=== PATIENT | female | born 1985 | race African-American/Black ===

== ENCOUNTER 2020-02-26 15:40 | Emergency (ER) | payer OTHER, SELFPAY ==
[2020-02-26 15:55] VITALS: BP 156/97; PULSE 110; RESP 20; TEMP 37.2; O2SAT 100
--- NOTE | 2020-02-26 16:57 | ED.URI ---
HPI - URI/Sore Throat General Chief Complaint: Upper Respiratory Infection Stated Complaint: sore throat Time Seen by Provider: 02/26/20 16:57 Source: patient Mode of arrival: ambulatory Limitations: no limitations History of Present Illness HPI Narrative: Cathryn Ortega is a 35 yo female with PMH of HTN who started with sore throat this morning, no sob, fatigue, no fever. Denies N/V/D. Related Data Home Medications Medication Instructions Recorded Confirmed lisinopril-hydrochlorothiazide 25 tablet PO DAILY 02/26/20 02/26/20 Allergies Allergy/AdvReac Type Severity Reaction Status Date / Time No Known Allergies Allergy Mild Verified 01/10/11 12:12 Review of Systems Review of Systems: Narrative: CONSTITUTIONAL: Denies fever, chills, sweats. EYES: Denies visual changes, redness, discharge. ENT: Denies rhinorrhea, congestion, has sore throat, no otalgia. CARDIOVASCULAR: Denies chest pain, palpitations, edema. RESPIRATORY: Denies dyspnea, wheezing, cough GASTROINTESTINAL: Denies abdominal pain, nausea, vomiting, diarrhea. GENITOURINARY: Denies dysuria, hematuria, abnormal discharge SKIN: Denies rash or itching. NEUROLOGIC: Denies numbness, or focal weakness. PSYCHIATRIC: Denies anxiety or depression. PMFSH Past Medical History Medical History HTN (hypertension) Family History Family History Other No acute medical problems Social History Social History (Updated 02/26/20 @ 17:01 by Martha Johnson CNP) Smoking packs per day: 0.5 Smoking cigarettes per day: 10.0 Smoking status: Current every day smoker Alcohol intake: current Gender identity (if verbalized by the patient): Female Comments At time of signature, I agree with nursing past medical, surgical, social and family history. There is no relevant family history pertinent to the presenting complaint. Exam Narrative: Exam Narrative: GENERAL: This is a well-nourished, well-developed patient, in mild distress. HEAD: normocephalic, atraumatic. EYES: PERRL. Sclera clear/white. Vision is grossly intact. EARS: External ears normal, auditory canals clear and without drainage, TMs normal without perforation. Hearing grossly intact. NOSE: External nose normal without nasal discharge, nares without redness, no rhinorrhea. THROAT: Mucous membranes moist, posterior pharynx -posterior pharynx erythema with no exudate NECK: Neck supple, non-tender CARDIOVASCULAR: Regular rate and rhythm without murmurs, gallops, or rubs. RESPIRATORY: Clear to auscultation. Breath sounds equal bilaterally. No wheezes, rales, or rhonchi. GASTROINTESTINAL: Abdomen soft, non-tender, SKIN: warm, intact with no suspicious lesions or rash, good texture and turgor. NEURO: awake, alert, and oriented to person, place and time. There were no obvious focal neurologic abnormalities. Steady gait EXTREMITIES: Normal range of motion. BACK: Nontender without deformity Course Course Emergency Course: Patient comes to [facility] with 1 day of sore throat with no fever Flu and strep test negative-treat with prednisone and cepacol Patient sent for Covid testing Vital Signs Vital signs: Vital Signs Temperature 98.9 F 02/26/20 15:55 Pulse Rate 110 H 02/26/20 15:55 Respiratory Rate 02/26/20 15:55 Blood Pressure 156/97 H 02/26/20 15:55 Pulse Oximetry 100 02/26/20 15:55 Temperature 98.9 F 02/26/20 15:55 Pulse Rate 110 H 02/26/20 15:55 Respiratory Rate 20 02/26/20 15:55 Blood Pressure 156/97 H 02/26/20 15:55 Pulse Oximetry 100 02/26/20 15:55 MDM - URI/Sore Throat Differential Diagnosis Differential diagnosis: Likely upper respiratory infection, viral infection, pharyngitis and other Lab Data Labs: Influenza A Screen Negative Reference Range: Negative Influenza B
== END 2020-02-26 17:21 | disposition home or self-care (01) ==
PROVIDERS: Emergency Provider Nurse Practitioner; PCP Family Medicine
DX: J02.9 Acute pharyngitis, unspecified (principal); Z20.828 Contact with and (suspected) exposure to other viral communicable diseases; F17.210 Nicotine dependence, cigarettes, uncomplicated; I10 Essential (primary) hypertension
CPT/HCPCS: 87081; 87804; 87880; 99203; G0463